=== PATIENT | male | born 1985 | race Two or more races ===

== ENCOUNTER 2019-09-05 09:56 | Emergency (ER) | payer BC ==
[~2019-09-05] VITALS: Ht 185.4 cm; Wt 117.9 kg
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
[2019-09-05] MEDS ORDERED: Cyclobenzaprine 10mg Tab ORAL ONE (10:15)
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
[2019-09-05] MEDS ORDERED: CYCLOBENZAPRINE10 MG ORAL (10:27)
[2019-09-05] MEDS ORDERED: IBUPROFEN600 MG ORAL (10:27)
--- NOTE | 2019-09-05 10:38 | NUR ---
ED Nurse Note: xray at bedside.
[2019-09-05 11:20] VITALS: BP 152/83
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
--- NOTE | 2019-09-05 12:08 | Diagnostic Imaging Report ---
Indication: Right shoulder pain Technique: 3 views of the right shoulder Comparison: none Findings: No acute fractures. No dislocations. The joint spaces are preserved Impression: Negative
== END 2019-09-05 11:20 | disposition home or self-care (01) ==
LOC: EDBD 09:56 → EMR 10:50
DX: M25.511 Pain in right shoulder (principal); V49.9XXA Car occupant (driver) (passenger) injured in unspecified traffic accident, initial encounter; Y93.89 Activity, other specified; Y92.411 Interstate highway as the place of occurrence of the external cause
CPT/HCPCS: 99283